=== PATIENT | female | born 1990 | race Hispanic/Latino ===

== ENCOUNTER 2020-10-06 00:41 | Emergency (ER) | payer MEDICAID ==
[~2020-10-06] VITALS: Ht 170.2 cm; Wt 119.3 kg
[~2020-10-06 00:41] MED LIST: GLYB2.5T6 PO; IBUP-2697 PO; PREN-196 PO; PREN1TAB89 PO
[2020-10-06] MEDS ORDERED: LIDOCAINE HCL 2% VISCOUS 15 ML UDCUP PO ONE (04:00)
[2020-10-06] MEDS ORDERED: ONDANSETRON ODT 4MG TAB SL ONE (04:00)
[2020-10-06] MEDS ORDERED: FAMOTIDINE 20MG TAB PO ONE (04:00)
[2020-10-06] MEDS ORDERED: MAG/ALUM/SIMETH 30 ML UDCUP PO ONE (04:00)
[2020-10-06] MEDS ORDERED: ACETAMINOPHEN 500 MG TABLET PO ONE (04:00)
[2020-10-06] MEDS ORDERED: PANTOPRAZOLE 40 MG TAB DR PO SCH (04:00)
[2020-10-06 04:36] VITALS: BP 132/71
[2020-10-06] MEDS ORDERED: DICY20TA2 PO (04:55)
[2020-10-06] MEDS ORDERED: ONDA4TAB10 PO (04:55)
[2020-10-06] MEDS ORDERED: PANT40TA54 PO (04:55)
== END 2020-10-06 05:24 | disposition home or self-care (01) ==
LOC: EDH 01:26
DX: K29.70 Gastritis, unspecified, without bleeding (principal); R05 Cough; R50.9 Fever, unspecified; Z20.822 Contact with and (suspected) exposure to COVID-19; Z79.899 Other long term (current) drug therapy
CPT/HCPCS: 87635; 99284; C9803